=== PATIENT | male | born 2000 | race Caucasian/White ===

== ENCOUNTER 2021-05-05 07:45 | Emergency (ER) | payer OTHER ==
[~2021-05-05] VITALS: Ht 175.3 cm; Wt 77.6 kg
[2021-05-05] MEDS ORDERED: ONDA4TAB6 (07:53)
[2021-05-05] MEDS ORDERED: KETOROLAC 30 MG/ML 1ML VIAL IV ONE (11:55)
[2021-05-05] MEDS ORDERED: METOCLOPRAMIDE INJ 10MG/2ML VIAL (J2765 PER 1) IV ONE (11:55)
[2021-05-05] MEDS ORDERED: NS 1,000 ML IV ONE (11:55)
[2021-05-05 12:17] LABS: BASO # 0.1 10^3/uL (0.0-0.2); BASO % 1.1 % (0.0-1.0); EOS # 0.2 10^3/uL (0.0-0.5); HEMATOCRIT 48.4 % (42.0-52.0); HEMOGLOBIN 16.4 g/dl (13.5-17.5); LYMPH % 36.3 % (24.0-44.0); MEAN CORPUSCULAR HEMOGLOBIN 29.6 pg (27.0-33.0); MEAN CORPUSCULAR HGB CONC 33.9 g/dl (32.0-36.5); MEAN CORPUSCULAR VOLUME 87.4 fl (80.0-96.0); MONO # 0.5 10^3/uL (0.0-0.8); MONO % 9.3 % (2.0-8.0); NEUTROPHILS # 2.8 10^3/uL (1.5-8.5); NEUTROPHILS % 50.1 % (36.0-66.0); PLATELET COUNT, AUTOMATED 215 10^3/uL (150-450); RED BLOOD COUNT 5.54 10^6/uL (4.30-6.10); WHITE BLOOD COUNT 5.6 10^3/uL (4.0-10.0)
[2021-05-05 12:43] LABS: ALBUMIN 4.4 GM/DL (3.2-5.2); BILIRUBIN,DIRECT 0.2 MG/DL (0.0-0.2); BILIRUBIN,TOTAL 0.8 MG/DL (0.2-1.0); TOTAL PROTEIN 7.9 GM/DL (6.4-8.2)
[2021-05-05] MEDS ORDERED: ISOVUE-370 76% 100ML VIAL As Ordered ONE (13:09)
[2021-05-05] MEDS ORDERED: PANT40TA29 PO (13:37)
[2021-05-05] MEDS ORDERED: ONDA4TAB6 PO (13:37)
[2021-05-05] MEDS ORDERED: SUCR1TA PO (13:37)
[2021-05-05 14:00] VITALS: BP 127/72
== END 2021-05-05 14:31 | disposition home or self-care (01) ==
LOC: M ED 07:45
DX: R10.13 Epigastric pain (principal); R11.2 Nausea with vomiting, unspecified; R19.7 Diarrhea, unspecified; G43.909 Migraine, unspecified, not intractable, without status migrainosus; Z79.899 Other long term (current) drug therapy
CPT/HCPCS: 74177; 76705; 80047; 80076; 81001; 83690; 85025; 96361; 96374; 96375; 99284; J1885; J2765; Q9967

== ENCOUNTER 2021-08-25 07:14 | Day surgery (SDC) | payer OTHER ==
[~2021-08-25] VITALS: Ht 175.3 cm; Wt 79.5 kg
[~2021-08-25 07:14] MED LIST: NS 1,000 ML IV ONE; ONDA4TAB6; ONDA4TAB6 PO; PANT40TA29 PO; SUCR1TA PO
[2021-08-25] MEDS ORDERED: PANT40TA29 PO (07:26)
[2021-08-25] MEDS ORDERED: fentaNYL 100 MCG/2 ML INJECTION As Ordered ONE (08:36)
[2021-08-25] MEDS ORDERED: propofoL 200 MG/20 ML VIAL As Ordered ONE (08:51)
[2021-08-25] MEDS ORDERED: LIDOCAINE 2% 100MG/5ML SDV (FOR ANES.) As Ordered ONE (08:51)
[2021-08-25 09:15] VITALS: BP 125/57
== END 2021-08-25 09:29 | disposition home or self-care (01) ==
LOC: M OPP 07:14
PROVIDERS: ATTEND Internal Medicine Gastroenterology
DX: K29.70 Gastritis, unspecified, without bleeding (principal); R13.10 Dysphagia, unspecified; R10.13 Epigastric pain; R68.81 Early satiety; Z79.899 Other long term (current) drug therapy; Z80.0 Family history of malignant neoplasm of digestive organs
CPT/HCPCS: 43239; 88305; J3010

== ENCOUNTER 2021-12-19 10:47 | Emergency (ER) | payer OTHER ==
[~2021-12-19] VITALS: Ht 175.3 cm; Wt 79.5 kg
[~2021-12-19 10:47] MED LIST changes: -NS 1,000 ML IV ONE
[2021-12-19 12:52] LABS: BASO % 0.6 % (0.0-1.0); EOS # 0.1 10^3/uL (0.0-0.5); EOS % 0.8 % (0.0-3.0); HEMATOCRIT 47.2 % (42.0-52.0); HEMOGLOBIN 15.5 g/dl (13.5-17.5); LYMPH % 15.7 % (24.0-44.0); MEAN CORPUSCULAR HEMOGLOBIN 29.5 pg (27.0-33.0); MEAN CORPUSCULAR HGB CONC 32.8 g/dl (32.0-36.5); MEAN CORPUSCULAR VOLUME 89.7 fl (80.0-96.0); MONO # 1.1 10^3/uL (0.0-0.8); MONO % 16.7 % (2.0-8.0); NEUTROPHILS # 4.2 10^3/uL (1.5-8.5); PLATELET COUNT, AUTOMATED 161 10^3/uL (150-450); RED BLOOD COUNT 5.26 10^6/uL (4.30-6.10); WHITE BLOOD COUNT 6.3 10^3/uL (4.0-10.0)
[2021-12-19 14:59] LABS: ALBUMIN 4.3 GM/DL (3.2-5.2); ALT/SGPT 69 U/L (12-78); BILIRUBIN,DIRECT 0.2 MG/DL (0.0-0.2); BILIRUBIN,TOTAL 0.3 MG/DL (0.2-1.0); BLOOD UREA NITROGEN 12 MG/DL (7-18); CALCIUM LEVEL 9.2 MG/DL (8.5-10.1); CARBON DIOXIDE LEVEL 30 MEQ/L (21-32); CHLORIDE LEVEL 104 MEQ/L (98-107); CREATININE FOR GFR 0.91 MG/DL (0.70-1.30); GLOMERULAR FILTRATION RATE > 60.0 (>60); GLUCOSE, FASTING 88 MG/DL (70-100); LIPASE 68 U/L (73-393); SODIUM LEVEL 137 MEQ/L (136-145); TOTAL PROTEIN 7.9 GM/DL (6.4-8.2)
[2021-12-19] MEDS ORDERED: ACETAMINOPHEN 500 MG TAB PO ONE (18:05)
[2021-12-19 18:27] VITALS: BP 140/77
== END 2021-12-19 19:17 | disposition home or self-care (01) ==
LOC: M ED 10:47
DX: U07.1 COVID-19 (principal)

== ENCOUNTER 2022-07-27 16:28 | Inpatient (IN) | payer OTHER ==
[~2022-07-27] VITALS: Ht 175.3 cm; Wt 90.5 kg
[2022-07-27 18:05] LABS: AMPHETAMINES LEVEL URINE NEGATIVE (NEGATIVE); BARBITURATES URINE NEGATIVE (NEGATIVE); BENZODIAZEPINES URINE NEGATIVE (NEGATIVE); CANNABINOIDS URINE NEGATIVE (NEGATIVE); COCAINE METABOLITE URINE NEGATIVE (NEGATIVE); METHADONE URINE NEGATIVE (NEGATIVE); OPIATES URINE NEGATIVE (NEGATIVE); PHENCYCLIDINE URINE NEGATIVE (NEGATIVE)
[2022-07-27 18:08] LABS: HEMATOCRIT 46.8 % (42.0-52.0); HEMOGLOBIN 15.8 g/dl (13.5-17.5); MEAN CORPUSCULAR HEMOGLOBIN 29.6 pg (27.0-33.0); MEAN CORPUSCULAR HGB CONC 33.8 g/dl (32.0-36.5); MEAN CORPUSCULAR VOLUME 87.8 fl (80.0-96.0); PLATELET COUNT, AUTOMATED 205 10^3/uL (150-450); RED BLOOD COUNT 5.33 10^6/uL (4.30-6.10); WHITE BLOOD COUNT 8.1 10^3/uL (4.0-10.0)
[2022-07-27 18:33] LABS: ETHYL ALCOHOL (ETHANOL) < 0.003 % (0.000-0.010)
[2022-07-27 18:35] LABS: ACETAMINOPHEN LEVEL < 2.0 UG/ML (10.0-20.0); ALBUMIN 4.5 G/DL (3.2-5.2); ALKALINE PHOSPHATASE 92 U/L (46-116); ALT/SGPT 10 U/L (7.0-40); AST/SGOT 17 U/L (<34); BILIRUBIN,DIRECT 0.3 MG/DL (<0.4); BILIRUBIN,TOTAL 0.8 MG/DL (0.3-1.2); BLOOD UREA NITROGEN 13 MG/DL (9-23); CALCIUM LEVEL 9.3 MG/DL (8.5-10.1); CARBON DIOXIDE LEVEL 29 MMOL/L (20-31); CHLORIDE LEVEL 105 MMOL/L (98-107); CREATININE FOR GFR 1.01 MG/DL (0.70-1.30); GLOMERULAR FILTRATION RATE > 60.0 (>60); GLUCOSE, FASTING 89 MG/DL (60-100); POTASSIUM SERUM 3.8 MMOL/L (3.5-5.1); SALICYLATE LEVEL < 3.0 MG/DL (<30); SODIUM LEVEL 142 MMOL/L (136-145); TOTAL PROTEIN 7.4 G/DL (5.7-8.2)
[2022-07-27 18:37] LABS: THYROID STIMULATING HORMONE 0.632 uIU/ML (0.55-4.78)
[2022-07-27] MEDS ORDERED: HOME MED LIST COMPLETE! XX SCH (19:45)
[2022-07-27] MEDS ORDERED: MOM 30ML SUSPENSION UDC PO PRN (21:00)
[2022-07-27] MEDS ORDERED: MAALOX 30 ML SUSP *UDC PO PRN (21:00)
[2022-07-27] MEDS ORDERED: ACETAMINOPHEN TAB 650MG DOSE (2X325MG) PO PRN (21:00)
[2022-07-27] MEDS ORDERED: OLANZapine ORAL DISINTEGRATING TAB 5MG PO PRN (21:00)
[2022-07-27 22:55] VITALS: BP 141/66
[2022-07-28 06:43] VITALS: BP 124/63
[2022-07-28] MEDS: SERTRALINE HCL 50 MG TAB PO SCH (08:14)
[2022-07-28] MEDS ORDERED: NICOTINE 21MG/24HR 1 EA TRANSDERMAL TD PRN (09:55)
[2022-07-28] MEDS: hydrOXYzine 50 MG TAB PO PRN ×2 (10:42→17:15)
[2022-07-28 17:33] VITALS: BP 145/86
[2022-07-28] MEDS: traZODone 50 MG TAB PO PRN (20:33)
[2022-07-28] MEDS: busPIRone 5 MG TAB PO SCH (20:33)
[2022-07-29 05:53] VITALS: BP 130/67
[2022-07-29] MEDS: busPIRone 5 MG TAB PO SCH ×2 (07:59→20:36)
[2022-07-29] MEDS: OMEPRAZOLE 20MG CAP PO SCH (07:59)
[2022-07-29] MEDS: SERTRALINE HCL 50 MG TAB PO SCH (08:00)
[2022-07-29] MEDS: hydrOXYzine 50 MG TAB PO PRN ×2 (08:01→15:11)
[2022-07-29] MEDS: IBUPROFEN 400MG TAB PO PRN (13:48)
[2022-07-29 18:00] VITALS: BP 143/74
[2022-07-29] MEDS: traZODone 50 MG TAB PO PRN (23:07)
[2022-07-30 06:43] VITALS: BP 121/70
[2022-07-30] MEDS: SERTRALINE HCL 50 MG TAB PO SCH (08:50)
[2022-07-30] MEDS: busPIRone 5 MG TAB PO SCH ×2 (08:51→20:46)
[2022-07-30] MEDS: hydrOXYzine 50 MG TAB PO PRN ×2 (08:51→16:03)
[2022-07-30] MEDS: OMEPRAZOLE 20MG CAP PO SCH (08:51)
[2022-07-30 16:31] VITALS: BP 150/73
[2022-07-30] MEDS ORDERED: TRAZ-252 PO (19:02)
[2022-07-30] MEDS ORDERED: BUSP5TA PO (19:02)
[2022-07-30] MEDS ORDERED: OMEP-173 PO (19:02)
[2022-07-30] MEDS ORDERED: SERT50TA29 PO (19:02)
[2022-07-30] MEDS ORDERED: NICO21PAT TD (19:02)
[2022-07-30] MEDS ORDERED: HYDR50TA70 PO (19:02)
[2022-07-30] MEDS: traZODone 50 MG TAB PO PRN (20:46)
[2022-07-31 06:35] VITALS: BP 144/81
[2022-07-31] MEDS: busPIRone 5 MG TAB PO SCH (07:46)
[2022-07-31] MEDS: SERTRALINE HCL 50 MG TAB PO SCH (07:46)
[2022-07-31] MEDS: OMEPRAZOLE 20MG CAP PO SCH (07:46)
[2022-07-31] MEDS: hydrOXYzine 50 MG TAB PO PRN (07:46)
[2022-07-31] MEDS: IBUPROFEN 400MG TAB PO PRN (07:47)
== END 2022-07-31 13:14 | disposition home or self-care (01) | DRG 885 ==
LOC: M ED 16:28 → M ED INP 20:35 → M PSY 21:58
PROVIDERS: ADMIT Student in an Organized Health Care Education/Training Program; ATTEND Psychiatry & Neurology Psychiatry
DX: F32.2 Major depressive disorder, single episode, severe without psychotic features (principal); R45.851 Suicidal ideations; F41.9 Anxiety disorder, unspecified; F43.10 Post-traumatic stress disorder, unspecified; F90.9 Attention-deficit hyperactivity disorder, unspecified type; F17.200 Nicotine dependence, unspecified, uncomplicated; Z62.810 Personal history of physical and sexual abuse in childhood; Z62.812 Personal history of neglect in childhood; K21.9 Gastro-esophageal reflux disease without esophagitis; K25.9 Gastric ulcer, unspecified as acute or chronic, without hemorrhage or perforation

== ENCOUNTER → 2022-08-01 | Outpatient (REF) ==
[~2022-08-01] MED LIST changes: +BUSP5TA PO; +HYDR50TA70 PO; +NICO21PAT TD; +OMEP-173 PO; +SERT50TA29 PO; +TRAZ-252 PO
== END ==
LOC: M PLAIMG 14:40
PROVIDERS: ATTEND Internal Medicine
DX: R06.02 Shortness of breath (principal)

== ENCOUNTER → 2024-02-19 | Outpatient (REF) ==
[~2024-02-19] MED LIST changes: +ONDA-282; +ONDA-282 PO; -ONDA4TAB6; -ONDA4TAB6 PO
== END ==
LOC: M PLAIMG 13:47
PROVIDERS: ATTEND Internal Medicine
DX: R52 Pain, unspecified (principal)